=== PATIENT | male | born 1965 | race Caucasian/White ===

== ENCOUNTER 2021-05-14 17:20 | Outpatient (REF) | payer OTHER, SELFPAY ==
[2021-05-14 14:52] LABS: Hemoglobin A1C 5.5 % (<5.7)
[2021-05-14 15:12] LABS: Calculated LDL 144 mg/dL (<100); Cholesterol 214 mg/dL (<200); HDL Cholesterol 58 mg/dL (40-60); Triglyceride 64 mg/dL (<150)
[2021-05-14 22:14] LABS: PSA, Screening 3.1 ng/mL (0.0-3.5)
[2021-05-15 09:59] LABS: Hepatitis C Ab w Rflx HCV PCR Negative (Negative)
[2021-05-15 10:11] LABS: HIV-1/2 Ag & Ab Screen Negative (Negative)
== END 2021-05-14 17:21 | disposition home or self-care (01) ==
LOC: NCHCN 17:20
PROVIDERS: Visit Provider Nurse Practitioner Family
DX: Z00.00 Encounter for general adult medical examination without abnormal findings (principal); Z12.5 Encounter for screening for malignant neoplasm of prostate
CPT/HCPCS: 80061; 82306; 84153; 86803; 87389; 83036

== ENCOUNTER 2021-11-13 09:40 | Outpatient (REF) | payer OTHER, SELFPAY ==
[2021-11-13 16:01] LABS: Calculated LDL 101 mg/dL (<100); Cholesterol 165 mg/dL (<200); HDL Cholesterol 56 mg/dL (40-60); Triglyceride 42 mg/dL (<150)
[2021-11-13 22:24] LABS: PSA, Screening 2.9 ng/mL (<=3.5)
== END 2021-11-13 09:41 | disposition home or self-care (01) ==
LOC: NCHCN 09:40
PROVIDERS: PCP Nurse Practitioner Family; Visit Provider Nurse Practitioner Family
DX: E78.5 Hyperlipidemia, unspecified (principal); M25.552 Pain in left hip; Z12.5 Encounter for screening for malignant neoplasm of prostate
CPT/HCPCS: 80061; 84153

== ENCOUNTER 2021-11-23 01:23 | Outpatient (CLI) | payer OTHER, SELFPAY ==
--- NOTE | 2021-11-23 | DI.MRI_ITS ---
Exam(s) MR LOWER JOINT LT WO EXAM: MR LOWER JOINT LT WO CLINICAL HISTORY: LT HIP PAIN, M25.552, DESPITE PT,? LABRAL TEAR, TECHNIQUE: Multiplanar multisequence MRI of Pelvis was performed COMPARISON: No exams were available for comparison FINDINGS: Bones: There is no fracture or contusion pattern. The overall marrow signal has a mottled appearanc e, greater in the sacrum and pelvic bones which could indicate red marrow reconversion. Clinical cor relation is recommended. No significant joint effusion is present, making evaluation for labral tea r difficult. There are small subchondral cysts on seen in the acetabulum. Subchondral cysts are see n in the right anterior aspect of the right femoral head.. The SI joints and symphysis pubis are well maintained. Musculotendinous structures: There is some thickening high signal in and surrounding the gluteus min imus tendon, consistent with tendinitis. The gluteus medius tendon appears intact. Intrapelvic structures demonstrate no significant abnormality. IMPRESSION: Left gluteus minimus tendinitis. Degenerative changes of the left superior labrum. DATA REPOSITORY:
== END 2021-11-23 01:43 ==
LOC: DI 01:24
PROVIDERS: PCP Nurse Practitioner Family; Visit Provider Nurse Practitioner Family
DX: M76.02 Gluteal tendinitis, left hip (principal); M16.12 Unilateral primary osteoarthritis, left hip
CPT/HCPCS: 73721

== ENCOUNTER 2021-11-24 14:12 | Outpatient (CLI) | payer OTHER, SELFPAY ==
--- NOTE | 2021-11-24 14:00 | DI.RAD_ITS ---
Exam(s) XR HIP LT COMPLETE AP PELVIS EXAM: XR HIP LT COMPLETE AP PELVIS CLINICAL HISTORY: left hip pain. TECHNIQUE: 2D digital imaging was performed of the left hip. Two views were obtained. AP pelvis an d lateral left hip views were obtained. COMPARISON: No exams were available for comparison FINDINGS: BONES: No acute fracture is present. No bony destructive lesion is seen. JOINTS: No dislocation present. Degenerative changes are seen in the hips with mild joint space narro wing on the right and mild acetabular spurring and subchondral sclerosis on the left. SOFT TISSUE: Normal. IMPRESSION: Mild degenerative changes of the left hip. DATA REPOSITORY: RADIATION DOSE DELIVERED:
== END 2021-11-24 14:13 | disposition home or self-care (01) ==
LOC: DIORS 14:12
PROVIDERS: PCP Nurse Practitioner Family; Referring Provider Nurse Practitioner Family; Visit Provider Student in an Organized Health Care Education/Training Program
DX: M16.12 Unilateral primary osteoarthritis, left hip (principal)
CPT/HCPCS: 73502

== ENCOUNTER 2021-11-27 12:21 | Outpatient (REF) | payer OTHER, SELFPAY ==
[2021-11-27 16:41] LABS: Abs Immature Grans 0.02 10^3/uL (0.0-0.06); Absolute Basophil Count 0.02 10^3/uL (0.0-0.2); Absolute Eosinophil Count 0.08 10^3/uL (0.0-0.7); Absolute Lymphocyte Count 1.77 10^3/uL (1.2-3.4); Absolute Monocyte Count 0.54 10^3/uL (0.1-0.8); Absolute Neutrophil Count 2.67 10^3/uL (1.2-6.7); Basophils % 0.4; Eosinophils % 1.6; HCT 44.4 % (40.0-50.0); HGB 14.7 g/dL (13.5-17.5); Immature Grans % 0.4; Lymphocytes % 34.7; MCH 28.7 pg (27.0-33.0); MCHC 33.1 % (32.0-36.0); MCV 87 fL (80-95); MPV 11.9 fL (8.0-11.0); Monocytes % 10.6; Neutrophils % 52.3; Platelet Count 194 10^3/uL (130-400); RBC 5.13 10^6/uL (4.36-5.78); RDW 12.4 % (11.8-14.1); RDW-SD 39.4 fL
== END 2021-11-27 12:22 | disposition home or self-care (01) ==
LOC: NCHCN 12:21
PROVIDERS: PCP Nurse Practitioner Family; Visit Provider Nurse Practitioner Family
DX: M25.552 Pain in left hip (principal)
CPT/HCPCS: 85025

== ENCOUNTER → 2021-12-17 02:02 | Outpatient (CLI) | payer OTHER, SELFPAY ==
--- NOTE | 2021-12-17 13:52 | DI.RAD_ITS ---
Exam(s) RF JOINT INJECTION FLUORO GUID EXAM: RF JOINT INJECTION FLUORO GUID CLINICAL HISTORY: L HIP PAIN, PRIMARY OA, M16.12,FLUORO GUIDED INJECTION TECHNIQUE: 2D and realtime digital imaging was performed. COMPARISON: No exams were available for comparison FINDINGS: Fluoroscopy was utilized by Dr. Bobby during left hip injection. Hard copy shows intra-articular inj ection. IMPRESSION: RADIATION DOSE DELIVERED: Romar=0.4 3 mGy Total DLP
[2021-12-17] MEDS: Bupivacaine 0.5% Pres-Free 10 ML VIAL 5 ML IJ (14:13)
[2021-12-17] MEDS: Omnipaque 300 MG/ML 10 ML BTL IJ (14:14)
[2021-12-17] MEDS: methylPREDNISolone ACETATE 80 MG/ML VIAL IM (14:15)
--- NOTE | 2021-12-18 07:13 | W.PROCNOTE ---
Date of service: 12/17/21 Time of Service: 15:20 Procedure Note Date of procedure: 12/17/21 Procedure: Left Hip Injection with Fluoroscopic Guidance Surgeon/Proceduralist/Physician: Martell Montenegro Procedure Diagnosis: Left Hip Osteoarthritis Procedure Indications: Zcahery has had persistent pain of the LEFT hip and groin. Noninvasive measures have been tried. To serve as both diagnostic and therapeutic, an injection under fluoroscopy was recommended. I had discussed the risks of the procedure and the patient elected to proceed. Procedure Description: Zachery was greeted in the flouroscopy room. The correct side was identified and the consent was reviewed with the patient and signed. The patient was then placed in the supine position on the fluoroscopy table. The LEFT hip was then prepped with Chloraprep. The anterolateral injection starting point was identiifed by bony landmarks and fluoroscopy. The skin and soft tissue in the tract of the injection was anesthetized with 1% Lidocaine. A spinal needle was then inserted deep into the hip joint at the level of the lateral femoral neck under fluoroscopic guidance. A small amount of Omnipaque solution was injected to confirm intraarticular placement. Once confirmed, the hip was injected with 5cc of 0.5% Bupivicaine and 80mg of Depo-Medrol. A bandaid was placed on the injection site. The patient tolerated the procedure well and noted improvement in pre-injection pain.
== END ==
PROVIDERS: PCP Nurse Practitioner Family; Visit Provider Student in an Organized Health Care Education/Training Program
DX: M16.12 Unilateral primary osteoarthritis, left hip (principal)
CPT/HCPCS: 20610; 77002; J1040

== ENCOUNTER 2022-05-17 16:48 | Outpatient (REF) | payer BC, SELFPAY ==
[2022-05-17 17:23] LABS: ALT 29 U/L (16-63); AST 19 U/L (15-37); Albumin 4.7 g/dL (3.4-5.0); Alkaline Phosphatase 84 U/L (46-116); Anion Gap 6.2 mmol/L (3-11); BUN 22 mg/dL (7-18); Bilirubin, Total 0.4 mg/dL (0.2-1.0); CO2 31.8 mmol/L (21.0-32.0); CREATININE 1.1 mg/dL (0.70-1.30); Calcium 9.5 mg/dL (8.5-10.1); Calculated LDL 98 mg/dL (<100); Chloride 107 mmol/L (98-107); Cholesterol 182 mg/dL (<200); Estimated GFR 77.81 (mL/min/1.73m2); Glucose 78 mg/dL (74-106); HDL Cholesterol 47 mg/dL (40-60); Potassium 4.3 mmol/L (3.5-5.1); Sodium 145 mmol/L (136-145); Total Protein 7.2 g/dL (6.4-8.2); Triglyceride 186 mg/dL (<150)
== END 2022-05-17 16:49 | disposition home or self-care (01) ==
LOC: NCHCN 16:48
PROVIDERS: PCP Nurse Practitioner Family; Visit Provider Nurse Practitioner Family
DX: Z00.00 Encounter for general adult medical examination without abnormal findings (principal); E78.5 Hyperlipidemia, unspecified; Z12.5 Encounter for screening for malignant neoplasm of prostate
CPT/HCPCS: 80053; 80061; 84153

== ENCOUNTER 2023-05-26 09:11 | Outpatient (REF) | payer BC, SELFPAY ==
[2023-05-26 17:14] LABS: Hemoglobin A1C 5.5 % (<5.7)
[2023-05-26 17:22] LABS: Calculated LDL 140 mg/dL (<100); Cholesterol 210 mg/dL (<200); HDL Cholesterol 55 mg/dL (40-60); Triglyceride 78 mg/dL (<150)
[2023-05-26 22:49] LABS: PSA, Diagnostic 4.4 ng/mL (<=3.5)
[2023-05-27 14:30] LABS: ALT 27 U/L (16-63); AST 15 U/L (15-37); Albumin 4.3 g/dL (3.4-5.0); Alkaline Phosphatase 56 U/L (46-116); Anion Gap 10.8 mmol/L (3-11); BUN 19 mg/dL (7-18); Bilirubin, Total 0.6 mg/dL (0.2-1.0); CO2 26.2 mmol/L (21.0-32.0); CREATININE 1.1 mg/dL (0.70-1.30); Calcium 9.1 mg/dL (8.5-10.1); Chloride 105 mmol/L (98-107); Estimated GFR 77.33 (mL/min/1.73m2); Glucose 79 mg/dL (74-106); Potassium 4.2 mmol/L (3.5-5.1); Sodium 142 mmol/L (136-145)
== END 2023-05-26 09:12 | disposition home or self-care (01) ==
LOC: NCHCN 09:11
PROVIDERS: PCP Nurse Practitioner Family; Visit Provider Nurse Practitioner Family
DX: Z13.6 Encounter for screening for cardiovascular disorders (principal); Z00.00 Encounter for general adult medical examination without abnormal findings; R97.20 Elevated prostate specific antigen [PSA]
CPT/HCPCS: 80053; 80061; 83036; 84153

== ENCOUNTER 2024-05-03 21:35 | Outpatient (REF) | payer OTHER, SELFPAY ==
[2024-05-03 18:57] LABS: Absolute Basophil Count 0.03 10^3/uL (0.0-0.2); Absolute Eosinophil Count 0.11 10^3/uL (0.0-0.7); Absolute Lymphocyte Count 1.62 10^3/uL (1.2-3.4); Absolute Monocyte Count 0.46 10^3/uL (0.1-0.8); Absolute Neutrophil Count 2.69 10^3/uL (1.2-6.7); Basophils % 0.6 %; Eosinophils % 2.2 %; HCT 46.3 % (40.0-50.0); HGB 15.4 g/dL (13.5-17.5); MCH 28.9 pg (27.0-33.0); MCHC 33.3 % (32.0-36.0); MCV 87 fL (80-95); MPV 11.4 fL (8.0-11.0); Monocytes % 9.4 %; Neutrophils % 54.8 %; Platelet Count 189 10^3/uL (130-400); RBC 5.33 10^6/uL (4.36-5.78); RDW 12.4 % (11.8-14.1); RDW-SD 39.3 fL; WBC 4.91 10^3/uL (4.4-10.8)
[2024-05-03 19:21] LABS: ALT 54 U/L (16-63); AST 19 U/L (15-37); Albumin 4.5 g/dL (3.4-5.0); Alkaline Phosphatase 58 U/L (46-116); Anion Gap 9.6 mmol/L (3-11); BUN 23 mg/dL (7-18); Bilirubin, Total 0.3 mg/dL (0.2-1.0); CO2 28.4 mmol/L (21.0-32.0); Calcium 9.3 mg/dL (8.5-10.1); Calculated LDL 103 mg/dL (<100); Chloride 106 mmol/L (98-107); Cholesterol 196 mg/dL (<200); Estimated GFR 86.16 (mL/min/1.73m2); Glucose 82 mg/dL (74-106); HDL Cholesterol 53 mg/dL (>or=40); Sodium 144 mmol/L (136-145); TSH 2.33 uIU/mL (0.36-3.74); Total Protein 7.1 g/dL (6.4-8.2); Triglyceride 204 mg/dL (<150)
[2024-05-04 17:27] LABS: PSA, Diagnostic 3.5 ng/mL (<=4.5)
[2024-05-09 15:59] LABS: Testosterone, Total 601 ng/dL (240-950)
== END 2024-05-03 21:36 | disposition home or self-care (01) ==
LOC: NCHCN 21:35
PROVIDERS: PCP Nurse Practitioner Family; Visit Provider Family Medicine
DX: R97.20 Elevated prostate specific antigen [PSA] (principal)
CPT/HCPCS: 80053; 80061; 84403; 84153; 84443; 85025

== ENCOUNTER 2024-05-30 09:04 | Outpatient (REF) | payer OTHER, SELFPAY ==
[2024-05-30 10:04] LABS: Bilirubin Negative (Negative); Blood Negative (Negative); Clarity Clear (Clear); Glucose Negative (Negative); Ketones Negative (Negative); Leukocyte Esterase Negative (Negative); Nitrite Negative (Negative); Specific Gravity 1.025 (1.005-1.025); Urobilinogen 0.2 mg/dL (Up to 0.2); pH 5.5 (5-8)
== END 2024-05-30 09:05 | disposition home or self-care (01) ==
LOC: NCHCN 09:04
PROVIDERS: PCP Nurse Practitioner Family; Visit Provider Family Medicine
DX: R97.20 Elevated prostate specific antigen [PSA] (principal)
CPT/HCPCS: 81003

== ENCOUNTER 2024-11-20 12:05 | Outpatient (REF) | payer OTHER, SELFPAY ==
[2024-11-20 15:45] LABS: Hemoglobin A1C 5.2 % (<5.7)
[2024-11-20 15:55] LABS: Calculated LDL 150 mg/dL (<100); Cholesterol 224 mg/dL (<200); HDL Cholesterol 55 mg/dL (>or=40); Triglyceride 96 mg/dL (<150)
== END 2024-11-20 12:06 | disposition home or self-care (01) ==
LOC: NCHCN 12:05
PROVIDERS: PCP Nurse Practitioner Family; Visit Provider Family Medicine
DX: R97.20 Elevated prostate specific antigen [PSA] (principal); E78.5 Hyperlipidemia, unspecified; Z13.1 Encounter for screening for diabetes mellitus
CPT/HCPCS: 80061; 83036; 84154